=== PATIENT | female | born 1965 | race Caucasian/White ===

== ENCOUNTER 2020-08-24 11:06 | Emergency (ER) | payer OTHER, MEDICAID, SELFPAY ==
[2020-08-24] VITALS (8 sets, daily range): BP systolic 117–179; BP diastolic 80–95; PULSE 80–120; RESP 11–24; TEMP 36.5; O2SAT 99–100
--- NOTE | 2020-08-24 11:12 | DI.RAD.S_ITS ---
PROCEDURE: XR CHEST 1V INDICATIONS: chest pain TECHNIQUE: One view of the chest was acquired. COMPARISON: None. FINDINGS: Surgical changes and devices: None. Lungs and pleura: Lungs are clear. No pleural effusions or pneumothorax. Mediastinum: Mediastinal contours appear normal. Heart size is normal. Bones and chest wall: No suspicious bony lesions. Overlying soft tissues appear unremarkable. IMPRESSION: Portable chest within normal limits. Dictated by: Radu Morin M.D. on 08/24/2020 at 10:41 Approved by: Radu Morin M.D. on 08/24/2020 at 10:42
[2020-08-24 11:23] LABS: Add Manual Diff / Slide Review NO; Basophils Absolute Auto 0 /uL (0-100); Basophils Percent Auto 0.4 % (0-2); Eosinophils Absolute Auto 100 /uL (0-450); Eosinophils Percent Auto 1.8 % (2-4); Hematocrit 43.5 % (36-46); Hemoglobin 14.8 g/dL (12.0-16.0); Lymphocytes Absolute Auto 2100 /uL (1100-4500); Lymphocytes Percent Auto 30.4 % (25-40); Mean Corpuscular HGB Conc 33.9 % (30-36); Mean Corpuscular Hemoglobin 32.4 PG (26-34); Mean Corpuscular Volume 95.4 fL (80-100); Monocytes Absolute Auto 500 /uL (0-900); Monocytes Percent Auto 6.6 % (3-14); Neutrophils Absolute Auto 4300 /uL (1500-7000); Neutrophils Percent Auto 60.8 % (50-75); Platelet Count 306 X10^3/uL (150-400); Red Blood Cell Count 4.57 X10^6/uL (4.0-5.2); Red Cell Distribution Width 12.9 % (11.6-14.8)
--- NOTE | 2020-08-24 11:23 | DI.CT.S_ITS ---
PROCEDURE: CT ANGIO CHEST PE PROTOCOL INDICATIONS: tachy with syncope TECHNIQUE: After the administration of intravenous contrast, 2 mm thick sections acquired from the pulmonary apices to the posterior costophrenic angles. 3-dimensional maximum intensity projection (MIP) coronal and sagittal reformats were then acquired through the thorax. For radiation dose reduction, the following was used: automated exposure control, adjustment of mA and/or kV according to patient size. COMPARISON: [facility], CR, XR CHEST 1V, 08/24/2020, 11:24. FINDINGS: Image quality: Excellent. Pulmonary arteries: Pulmonary arteries are normal in size, and demonstrate no intraluminal filling defects to suggest central pulmonary embolism. Lungs and pleura: Lungs are clear. No pleural effusions or pneumothorax. Central and peripheral airways are patent. Mediastinum: Heart size is normal, without pericardial effusion. No mediastinal or hilar adenopathy. Thoracic aorta is normal in caliber and enhancement. Esophagus is normal in caliber, without hiatal hernia. Bones and chest wall: No suspicious bony lesions. Ribs and thoracic spine appear intact throughout. Thyroid gland demonstrates no significant abnormality. No axillary or supraclavicular adenopathy. Abdomen: Cholecystectomy clips are seen. Visualized upper abdominal solid organs appear normal in the early arterial phase of enhancement. IMPRESSION: Negative for pulmonary embolism. No acute abnormality is seen. Incidental note is made of: Cholecystectomy Dictated by: Radu Morin M.D. on 08/24/2020 at 11:04 Approved by: Radu Morin M.D. on 08/24/2020 at 11:07
[2020-08-24 11:35] LABS: Prothrombin Time 11.6 SECONDS (10.1-12.7)
[2020-08-24 11:38] LABS: PTT Partial Thromboplastin Tim 33 SECONDS (26.4-36.2)
[2020-08-24] MEDS: SODIUM CHLORIDE 0.9% 1,000 ML 1000 ML IV (11:39)
--- NOTE | 2020-08-24 11:39 | PC.NURSE ---
Neuro exam normal. NIH 0
[2020-08-24 11:40] LABS: Alanine Aminotransferase 22 IU/L (<35); Albumin 4.9 g/dL (3.5-5.0); Albumin Globulin Ratio 1.6 (1.0-2.8); Alkaline Phosphatase 63 U/L (38-126); Aspartate Aminotransferase 32 IU/L (14-36); BUN Creatinine Ratio 14.5 (6-22); Bilirubin Total 0.9 mg/dL (0.2-1.3); Blood Urea Nitrogen 11 mg/dL (7-17); Calcium 9.8 mg/dL (8.4-10.2); Carbon Dioxide 30 mmol/L (22-32); Chloride 102 mmol/L (98-107); Creatine Kinase 118 U/L (30-135); Estimated Glomerular Filt Rate > 60.0 mL/min (>60); Globulin 3.1 g/dL (1.7-4.1); Glucose 106 mg/dL (70-100); HEMOLYSIS < 15 (0-50); Lipase 84 U/L (23-300); Magnesium 2.4 mg/dL (1.6-2.3); Potassium 4.1 mmol/L (3.4-5.1); Sodium 138 mmol/L (137-145)
[2020-08-24 11:51] LABS: Troponin I < 0.012 ng/mL (0.01-0.034)
[2020-08-24 11:55] LABS: Creatine Kinase MB 1.18 ng/mL (<2.37)
--- NOTE | 2020-08-24 12:09 | ED.SYNCOPE ---
HPI - Syncope General Chief Complaint: Syncope Stated Complaint: chest pressure, syncope Time Seen by Provider: 08/24/20 11:14 Source: patient and family Mode of arrival: Wheelchair Limitations: no limitations History of Present Illness HPI narrative: Patient is a 54-year-old female with history of vasovagal syncope presenting after a syncopal episode last evening. She states that she was on the toilet having a bowel movement which she extremely dizzy lightheaded she did put her head between her legs. When she stood up she still felt extremely dizzy and needed to lay down for at least 10 minutes. She went to sleep and thought in the morning she would feel better which she did in till they caught up to the [facility]. At the [facility] she just suddenly did not feel well felt her heart racing and felt lightheaded at which point she came to the ER for further evaluation. She says she did the 23 and knee test and she has 2 things positive for factor 5 Leiden. No official testing or diagnosis she has not had any blood in mom. She is tachycardic here in the ED sinus rhythm. She denies any recent travel she has no chest pain or shortness of breath at this time. He denies any fever or chills. She did not at any point lose consciousness or pass out MD complaint: almost passed out Related Data Home Medications Medication Instructions Recorded Confirmed calcium-magnesium 1 tab PO DAILY 08/24/20 08/24/20 nortriptyline 10 mg PO BID 08/24/20 08/24/20 vitamin B complex-folic acid [B 1 tab PO DAILY 08/24/20 08/24/20 Complex 100] Allergies Allergy/AdvReac Type Severity Reaction Status Date / Time prochlorperazine Allergy Severe Weakness Verified 08/24/20 11:24 [From Compazine] alcohol Allergy Intermediate Rash Verified 08/24/20 11:24 [From Mastisol Adhesive] gum mastic Allergy Intermediate Rash Verified 08/24/20 11:24 [From Mastisol Adhesive] methyl salicylate Allergy Intermediate Rash Verified 08/24/20 11:24 [From Mastisol Adhesive] propoxyphene Allergy Intermediate Hallucinati Verified 08/24/20 11:24 [From Darvocet-N] ng storax Allergy Intermediate Rash Verified 08/24/20 11:24 [From Mastisol Adhesive] Sulfa (Sulfonamide Allergy Intermediate Rash Verified 08/24/20 11:24 Antibiotics) amoxicillin [From Augmentin] Allergy Unknown Verified 08/24/20 11:24 clavulanic acid Allergy Unknown Verified 08/24/20 11:24 [From Augmentin] latex Allergy Unknown Verified 08/24/20 11:24 Review of Systems Review of Systems Narrative: GENERAL: Denies chills, fatigue, malaise, fever, sweats, travel HEENT: Denies sinus pain, ear pain, sore throat, difficulty swallowing, neck pain RESPIRATORY: Denies dyspnea, cough, wheezing, hemoptysis, sputum. CARDIOVASCULAR: See HPI Denies chest pain, palpitations, orthopnea, edema GASTROINTESTINAL: Denies nausea, vomiting, abdominal pain, diarrhea, constipation, melena. : Denies dysuria, frequency, incontinence, hematuria, urinary retention, flank pain. MUSCULOSKELETAL: Denies weakness, joint pain, or bony pain SKIN: No rash, no erythema, no pruritus NEUROLOGIC: Denies weakness, dizziness, headache, numbness, change in speech, confusion PSYCHIATRIC: No concerning psychosocial issues. 12 point review of systems is negative except for those stated above and HPI Patient History Medical History Diverticulosis (Acute) Irritable bowel syndrome (Acute) Vasovagal reaction (Acute) Surgical History H/O colectomy (Acute) Social History Smoking Status: Never smoker Smoking Status: Never smoker alcohol intake frequency: 0-2 drinks per day Substance Use Type: does not use Exam Initial Vital Signs Initial Vital Signs: Vital Signs Pulse Rate 115 H 08/24/20 11:13 Respiratory Rate 13 08/24/20 11:13 Pulse Oximetry 100 08/24/20 11:13 GENERAL: Well-appearing, well-nourished and in no acute distress. HEENT: Head atraumatic,EOMI, pupils reactive, face symmetric, moist mucous membranes CARDIOVASCULAR: Tachycardic regular no murmur RESPIRATORY: Breath sounds equal bilaterally, no wheezes rales or rhonchi. ABDOMEN: Soft, nontender. Normoactive bowel sounds all 4 quadrants. No guarding or rebound. EXTREMITIES: Normal range of motion, no clubbing or edema. Neurovascularly intact NEUROLOGICAL: Alert and oriented x4.Normal gait and speech. Legal Support Specialist strength equal bilaterally SKIN: Warm, dry, no laceration, no petechiae, no rashes or lesions. Course Orders Ordered: ED Orders 08/24/20 11:12 XR chest 1V Stat EKG-12 Lead Stat 08/24/20 11:14 Complete Blood Count AUTO DIFF Stat Comprehensive Metabolic Panel Stat Lipase Stat Magnesium Stat Partial Thromboplastin Time Stat Prothrombin Time INR Stat Troponin & CK Cardiac Panel Stat 08/24/20 11:23 CT angio chest PE protocol Stat Discontinued Medications Aspirin (Aspirin Chew) 324 mg PO NOW ONE Stop: 08/24/20 11:13 Last Admin: 08/24/20 11:21 Dose: Not Given Documented by: SHARON Sodium Chloride (Normal Saline 0.9%) 1,000 mls @ 1,000 mls/hr IV BOLUS ONE Stop: 08/24/20 12:22 Last Infusion: 08/24/20 12:56 Dose: 0 mls/hr Documented by: Admin: 08/24/20 11:39 Dose: 1,000 mls/hr Documented by: SHARON Vital Signs Vital signs: Vital Signs - 8 hr 08/24/20 11:13 08/24/20 11:14 08/24/20 11:15 Temperature 97.7 F Pulse Rate 115 H 110 H 103 H Respiratory Rate 13 24 11 L Blood Pressure 179/95 H 141/84 H Pulse Oximetry 100 99 100 08/24/20 11:30 08/24/20 11:45 08/24/20 12:00 Temperature Pulse Rate 86 82 80 Respiratory Rate 11 L 15 11 L Blood Pressure 127/80 128/84 Pulse Oximetry 100 100 100 08/24/20 12:30 08/24/20 12:58 Temperature Pulse Rate 80 Respiratory Rate 17 Blood Pressure 117/81 Pulse Oximetry 100 MDM - Syncope Lab Data Attestation: I reviewed the patient's lab results. Result diagrams: 08/24/20 11:14 08/24/20 11:14 Labs: Lab Results 08/24/20 08/24/20 08/24/20 Range/Units 11:14 11:14 11:14 WBC 7.0 (4.5-11.0) X10^3/uL RBC 4.57 (4.0-5.2) X10^6/uL Hgb 14.8 (12.0-16.0) g/dL Hct 43.5 (36-46) % MCV 95.4 (80-100) fL MCH 32.4 (26-34) PG MCHC 33.9 (30-36) % RDW 12.9 (11.6-14.8) % Plt Count 306 (150-400) X10^3/uL Neut % (Auto) 60.8 (50-75) % Lymph % (Auto) 30.4 (25-40) % Mitchell % (Auto) 6.6 (3-14) % Eos % (Auto) 1.8 L (2-4) % Baso % (Auto) 0.4 (0-2) % Neut # (Auto) 4300 (3201-2048) /uL Lymph # (Auto) 2100 (1660-9780) /uL Mitchell # (Auto) 500 (0-900) /uL Eos # (Auto) 100 (0-450) /uL Baso # (Auto) 0 (0-100) /uL PT 11.6 (10.1-12.7) SECONDS INR 1.0 (0.9-1.3) APTT 33 (26.4-36.2) SECONDS Sodium 138 (137-145) mmol/L Potassium 4.1 (3.4-5.1) mmol/L Chloride 102 (98-107) mmol/L Carbon Dioxide 30 (22-32) mmol/L BUN 11 (7-17) mg/dL Creatinine 0.76 (0.52-1.04) mg/dL Estimated GFR > 60.0 (>60) mL/min BUN/Creatinine Ratio 14.5 (6-22) Glucose 106 H (70-100) mg/dL Calcium 9.8 (8.4-10.2) mg/dL Magnesium (1.6-2.3) mg/dL Total Bilirubin 0.9 (0.2-1.3) mg/dL AST 32 (14-36) IU/L ALT 22 (<35) IU/L Alkaline Phosphatase 63 (38-126) U/L Total Creatine Kinase 118 (30-135) U/L CK-MB (CK-2) 1.18 (<2.37) ng/mL CK-MB (CK-2) Rel Index 1.0 L (1.5-5.0) % Troponin I < 0.012 (0.01-0.034) ng/mL Total Protein 8.0 (6.3-8.2) g/dL Albumin 4.9 (3.5-5.0) g/dL Globulin 3.1 (1.7-4.1) g/dL Albumin/Globulin Ratio 1.6 (1.0-2.8) Lipase 84 (23-300) U/L // Range/Units 11:14 WBC (4.5-11.0) X10^3/uL RBC (4.0-5.2) X10^6/uL Hgb (12.0-16.0) g/dL Hct (36-46) % MCV (80-100) fL MCH (26-34) PG MCHC (30-36) % RDW (11.6-14.8) % Plt Count (150-400) X10^3/uL Neut % (Auto) (50-75) % Lymph % (Auto) (25-40) % Mitchell % (Auto) (3-14) % Eos % (Auto) (2-4) % Baso % (Auto) (0-2) % Neut # (Auto) (0557-8485) /uL Lymph # (Auto) (7223-0173) /uL Mitchell # (Auto) (0-900) /uL Eos # (Auto) (0-450) /uL Baso # (Auto) (0-100) /uL PT (10.1-12.7) SECONDS INR (0.9-1.3) APTT (26.4-36.2) SECONDS Sodium (137-145) mmol/L Potassium (3.4-5.1) mmol/L Chloride (98-107) mmol/L Carbon Dioxide (22-32) mmol/L BUN (7-17) mg/dL Creatinine (0.52-1.04) mg/dL Estimated GFR (>60) mL/min BUN/Creatinine Ratio (6-22) Glucose (70-100) mg/dL Calcium (8.4-10.2) mg/dL Magnesium 2.4 H (1.6-2.3) mg/dL Total Bilirubin (0.2-1.3) mg/dL AST (14-36) IU/L ALT (<35) IU/L Alkaline Phosphatase (38-126) U/L Total Creatine Kinase (30-135) U/L CK-MB (CK-2) (<2.37) ng/mL CK-MB (CK-2) Rel Index (1.5-5.0) % Troponin I (0.01-0.034) ng/mL Total Protein (6.3-8.2) g/dL Albumin (3.5-5.0) g/dL Globulin (1.7-4.1) g/dL Albumin/Globulin Ratio (1.0-2.8) Lipase (23-300) U/L Imaging Data Chest x-ray: Radiologist's Impression: PROCEDURE: XR CHEST 1V INDICATIONS: chest pain TECHNIQUE: One view of the chest was acquired. COMPARISON: None. FINDINGS: Surgical changes and devices: None. Lungs and pleura: Lungs are clear. No pleural effusions or pneumothorax. Mediastinum: Mediastinal contours appear normal. Heart size is normal. Bones and chest wall: No suspicious bony lesions. Overlying soft tissues appear unremarkable. IMPRESSION: Portable chest within normal limits. Dictated by: Radu Morin M.D. on 08/24/2020 at 10:41 Approved by: Radu Morin M.D. on 08/24/2020 at 10:42 CT scan - chest: Radiologist's Impression: PROCEDURE: CT ANGIO CHEST PE PROTOCOL INDICATIONS: tachy with syncope TECHNIQUE: After the administration of intravenous contrast, 2 mm thick sections acquired from the pulmonary apices to the posterior costophrenic angles. 3-dimensional maximum intensity projection (MIP) coronal and sagittal reformats were then acquired through the thorax. For radiation dose reduction, the following was used: automated exposure control, adjustment of mA and/or kV according to patient size. COMPARISON: [facility], XR CHEST 1V, 08/24/2020, 11:24. FINDINGS: Image quality: Excellent. Pulmonary arteries: Pulmonary arteries are normal in size, and demonstrate no intraluminal filling defects to suggest central pulmonary embolism. Lungs and pleura: Lungs are clear. No pleural effusions or pneumothorax. Central and peripheral airways are patent. Mediastinum: Heart size is normal, without pericardial effusion. No mediastinal or hilar adenopathy. Thoracic aorta is normal in caliber and enhancement. Esophagus is normal in caliber, without hiatal hernia. Bones and chest wall: No suspicious bony lesions. Ribs and thoracic spine appear intact throughout. Thyroid gland demonstrates no significant abnormality. No axillary or supraclavicular adenopathy. Abdomen: Cholecystectomy clips are seen. Visualized upper abdominal solid organs appear normal in the early arterial phase of enhancement. IMPRESSION: Negative for pulmonary embolism. No acute abnormality is seen. Incidental note is made of: Cholecystectomy Dictated by: Radu Morin M.D. on 08/24/2020 at 11:04 ECG Data Attestation: I personally reviewed and interpreted this ECG as follows: Prior ECG tracings: not available for review Interpretation: Normal sinus rhythm rate 106 p.r. interval 178 QRS [address] changes T-wave inversions no S wave or Q-wave identified MDM Narrative Medical decision making narrative: The patient has not passed out, it sounds as though she was having a vasovagal episode while bearing down on the toilet last evening. I am not sure what happened today she was having some heart palpitations. Heart rate improved with 1 L of IV fluid. CT done for tachycardia and questionable hypercoagulable state. It is negative. I do recommend she have a Holter monitor as an outpatient. The patient blood work is reassuring. She is trying to get set up with a PCP she is given information to do so. Recommend she return to the ED if she passes out or symptoms worsen. Discharge Plan Departure Patient Disposition: Home Clinical Impression: Vasovagal syncope Discharge Date/Time: 08/24/20 13:07 Instructions: DI for Syncope in Adults (Fainting) Activity Restrictions/Additional Instructions: *You have been diagnosed with vasovagal episode *What to do: I do recommend she get a Holter monitor to check your heart rate. Your PCP can help set you with this. I recommend increasing fluids intake today and resting *Continue to take medications as directed *Follow up with your primary care provider in 2-3 days *Return to ER if you should have increasing chest pain, heart palpitations, passing or any new, worsening or concerning symptoms Prescriptions: No Action nortriptyline 10 mg Capsule 10 mg PO BID RF: 0 calcium-magnesium 300-300 mg Tablet 1 tab PO DAILY RF: 0 vitamin B complex-folic acid [B Complex 100] 0.4 mg Tablet 1 tab PO DAILY RF: 0 Referrals: [facility] [Outside]
== END 2020-08-24 13:07 | disposition home or self-care (01) ==
PROVIDERS: Emergency Provider Emergency Medicine
DX: R55 Syncope and collapse (principal); R07.9 Chest pain, unspecified; R00.0 Tachycardia, unspecified
CPT/HCPCS: 36415; 71045; 71275; 80053; 82550; 82553; 83690; 83735; 84484; 85025; 85610; 85730; 93005; 93010; 96360; 99284; Q9967

== ENCOUNTER → 2021-01-31 12:41 | Outpatient (CLI) | payer OTHER, SELFPAY ==
[2021-01-31] MEDS: COVID-19 VACC #1, MRNA(MOD) 100 MCG/0.5 ML VIAL IM (12:50)
== END ==
PROVIDERS: Visit Provider Internal Medicine
DX: Z23 Encounter for immunization (principal)
CPT/HCPCS: 0011A; 91301

== ENCOUNTER → 2021-02-28 12:41 | Outpatient (CLI) | payer OTHER, SELFPAY ==
[2021-02-28] MEDS: COVID-19 VACC #2, MRNA(MOD) 100 MCG/0.5 ML VIAL IM (12:52)
== END ==
PROVIDERS: Visit Provider Internal Medicine
DX: Z23 Encounter for immunization (principal)
CPT/HCPCS: 0012A; 91301

== ENCOUNTER → 2021-10-08 16:13 | Outpatient (CLI) | payer OTHER, SELFPAY ==
--- NOTE | 2021-10-08 16:14 | DI.MG.S_ITS ---
BILATERAL DIGITAL SCREENING MAMMOGRAM 3D/2D WITH CAD: 10/08/2021 CLINICAL: Routine screening. Family history of breast cancer. Comparison is made to exams dated: 08/15/2020 mammogram - [facility], 04/28/2017 mammogram, and 07/03/2014 mammogram - [facility]. There are scattered fibroglandular elements in both breasts. Current study was also evaluated with a Computer Aided Detection (CAD) system. No significant masses, calcifications, or other findings are seen in either breast. There has been no significant interval change. IMPRESSION: NEGATIVE There is no mammographic evidence of malignancy. A 1 year screening mammogram is recommended. This exam was interpreted at Station ID: [id number]. NOTE: For mammograms, a report in lay terms will be sent to the patient. Approximately 15% of breast malignancies will not be visualized mammographically. In the management of a palpable breast mass, a negative mammogram must not discourage biopsy of a clinically suspicious lesion. Electronically Signed By: Tong Jenkins M.D., jr/kathrin:10/08/2021 17:03:56 letter sent: Normal Exam ACR BI-RADS Category 1: Negative [id number]
== END ==
PROVIDERS: PCP Family Medicine; Referring Provider Family Medicine; Visit Provider Family Medicine
DX: Z12.31 Encounter for screening mammogram for malignant neoplasm of breast (principal); Z80.3 Family history of malignant neoplasm of breast
CPT/HCPCS: 77063; 77067

== ENCOUNTER 2023-08-03 14:05 | Emergency (ER) | payer OTHER, SELFPAY ==
[2023-08-03 14:09] VITALS: BP 179/104; PULSE 110; O2SAT 99
[2023-08-03 14:14] VITALS: BP 179/104; PULSE 98; RESP 20; TEMP 36.6; O2SAT 100; BMI 22.8
--- NOTE | 2023-08-03 14:14 | DI.CT.S_ITS ---
PROCEDURE: CT HEAD/BRAIN WO CON INDICATIONS: L sided headache and L sided numbness TECHNIQUE: Noncontrast 4.5 mm thick angled axial sections acquired from the foramen magnum to the vertex, with coronal and sagittal reformats. For radiation dose reduction, the following was used: automated exposure control, adjustment of mA and/or kV according to patient size. COMPARISON: None. FINDINGS: Image quality: Excellent. CSF spaces: Basal cisterns are patent. No extra-axial fluid collections. Ventricles are normal in size and shape. Brain: No midline shift. No intracranial masses or hemorrhage. Williamson-white matter interface is normal. Skull and face: Calvarium and visualized facial bones are intact, without suspicious lesions. Sinuses: Mastoid air cells are clear. Small amount of layering fluid in the bilateral maxillary sinuses. Remainder of the paranasal sinuses are clear. IMPRESSION: CT head without acute intracranial abnormalities. No mass or mass effect. Minimal layering fluid in the bilateral maxillary sinuses possibly related to maxillary sinusitis. Dictated by: Nahum Alexander M.D. on 08/03/2023 at 14:35 Approved by: Nahum Alexander M.D. on 08/03/2023 at 14:36
[2023-08-03 14:25] VITALS: BP 148/93; PULSE 82; RESP 14; O2SAT 99
[2023-08-03 14:30] VITALS: BP 147/91; PULSE 84; RESP 13; O2SAT 98
[2023-08-03 14:31] LABS: Add Manual Diff / Slide Review NO; Basophils Absolute Auto 0 /uL (0-100); Basophils Percent Auto 0.5 % (0-2); Eosinophils Absolute Auto 100 /uL (0-450); Hematocrit 40.6 % (36-46); Hemoglobin 14.2 g/dL (12.0-16.0); Lymphocytes Absolute Auto 1500 /uL (1100-4500); Lymphocytes Percent Auto 24.1 % (25-40); Mean Corpuscular HGB Conc 34.9 % (30-36); Mean Corpuscular Hemoglobin 32.7 PG (26-34); Mean Corpuscular Volume 93.7 fL (80-100); Monocytes Absolute Auto 600 /uL (0-900); Monocytes Percent Auto 9.8 % (3-14); Neutrophils Absolute Auto 4000 /uL (1500-7000); Neutrophils Percent Auto 63.6 % (50-75); Platelet Count 233 X10^3/uL (150-400); Red Blood Cell Count 4.34 X10^6/uL (4.0-5.2); Red Cell Distribution Width 13.4 % (11.6-14.8); White Blood Cell Count 6.3 X10^3/uL (4.5-11.0)
--- NOTE | 2023-08-03 14:39 | ED.NEUROSD ---
HPI - Neuro Symptoms/Deficit General Chief Complaint: Neuro Symptoms/Deficit Stated Complaint: thinks she is having a TIA Time Seen by Provider: 08/03/23 14:13 Source: patient Mode of arrival: Ambulatory History of Present Illness HPI Narrative: Patient is a 57-year-old female who is here for evaluation which she thinks is potentially a TIA. She states that she woke up this morning at her normal state of health. She is been sick for the past couple days. States she was sitting at her desk when she stood up she noticed that her left leg was tingling/numb. It lasted approximately 15 minutes and has since almost completely resolved. Prior to the leg completely resolving she then started to have tingling in her left hand. That is still present but again has almost completely resolved. She then started to develop tingling in the left side of her face in the left-sided headache. She has had migraines in the past but that was many years ago. Has not had them since she was a kid. She is still having some tingling to the left side of her face. No vision problems. No chest pain or shortness of breath. On Anticoagulants: No Related Data Home Medications Medication Instructions Recorded Confirmed Topical skin cancer cream topical 08/28/21 estradiol 0.01% (0.1 mg/gram) 1 appful vaginal DAILY 08/28/21 08/28/21 vaginal cream Previous Rx's Medication Instructions Recorded nitrofurantoin macrocrystal 100 mg 100 mg PO BID #10 caps 08/28/21 capsule valacyclovir 1 gram tablet See Rx Instructions .Route 02/09/22 .COMPLEX #21 tabs sodium,potassium,mag sulfates 17.5 See Rx Instructions PO .COMPLEX 07/28/23 gram-3.13 gram-1.6 gram oral soln #354 mL (Suprep Bowel Prep Kit) Allergies Allergy/AdvReac Type Severity Reaction Status Date / Time prochlorperazine Allergy Severe Weakness Verified 08/28/21 14:43 [From Compazine] alcohol Allergy Intermediate Rash Verified 08/28/21 14:43 [From Mastisol Adhesive] gum mastic Allergy Intermediate Rash Verified 08/28/21 14:43 [From Mastisol Adhesive] methyl salicylate Allergy Intermediate Rash Verified 08/28/21 14:43 [From Mastisol Adhesive] propoxyphene Allergy Intermediate Hallucinati Verified 08/28/21 14:43 [From Darvocet-N] ng storax Allergy Intermediate Rash Verified 08/28/21 14:43 [From Mastisol Adhesive] Sulfa (Sulfonamide Allergy Intermediate Rash Verified 08/28/21 14:43 Antibiotics) amoxicillin [From Augmentin] Allergy Unknown Verified 08/28/21 14:43 clavulanic acid Allergy Unknown Verified 08/28/21 14:43 [From Augmentin] latex Allergy Unknown Verified 08/28/21 14:43 Review of Systems Constitutional Constitutional: Reports system reviewed and no additional complaints, except as documented ENT Ears, Nose, Mouth, and Throat: Reports system reviewed and no additional complaints, except as documented Cardiovascular Cardiovascular: Reports system reviewed and no additional complaints, except as documented Respiratory Respiratory: Reports system reviewed and no additional complaints, except as documented Integumentary/Breasts Skin/Breast: Reports system reviewed and no additional complaints, except as documented Neurologic Neurologic: Reports system reviewed and no additional complaints, except as documented Hematologic/Lymphatic On Anticoagulants: No Allergic/Immunologic Allergic/Immunologic: Reports system reviewed and no additional complaints, except as documented Patient History Medical History Acne (~1979) Actinic keratosis (~2011) Colon polyps (~2014) Diverticulosis (~2014) Endometriosis (~2009) Factor V Leiden (~1965) Gluten intolerance (~2014) Hearing loss Herpes (~1994) Hyperlipidemia Irritable bowel syndrome (~2014) Ovarian cyst (~1999) Painful menstrual periods (~1984) Skin cancer, basal cell (~2019) Squamous cell skin cancer (~2019) Vasovagal reaction Wears glasses Surgical History Anesthesia Dermoid cyst H/O colectomy History of section History of cholecystectomy History of hysterectomy History of removal of cyst History of varicose vein ligation Status post Mohs surgery Status post surgical removal of both fallopian tubes Family History (Updated 08/28/21 @ 14:55 by Juan Albert DO) Father Skin cancer Mother Hypertension Grandmother History of heart disease Grandfather Cancer History of heart disease Social History Smoking Status: Never smoker Smoking Status: Never smoker alcohol intake frequency: a few times a week Substance Use Type: does not use Exam Initial Vital Signs Initial Vital Signs: Vital Signs Pulse Rate 110 H 08/03/23 14:09 Blood Pressure 179/104 H 08/03/23 14:09 Pulse Oximetry 99 08/03/23 14:09 Const General: cooperative, comfortable and No ill appearing HENMT Head: normal to inspection and normocephalic Face and sinus: normal facial exam Resp Effort & Inspection: normal respiratory effort Cardio Rate: regular rate Rhythm: regular rhythm Skin General: no rashes or lesions noted Neuro Other: Neuro exam intact except for subjective decreased sensation on the left cheek versus the right side, left hand versus the right side and left foot compared to right foot. Extrem General: normal to inspection Course Orders Ordered: ED Orders 08/03/23 14:14 CT head/brain wo con Stat 08/03/23 14:15 Complete Blood Count AUTO DIFF Stat Comprehensive Metabolic Panel Stat Lipase Stat Magnesium Stat 08/03/23 14:16 EKG-12 Lead Stat Sodium Chloride (Normal Saline 0.9%) 1,000 mls @ 1,000 mls/hr IV BOLUS ONE Stop: 08/03/23 16:05 Last Admin: 08/03/23 15:16 Dose: Not Given Documented By: AMV Discontinued Medications Diphenhydramine HCl (Diphenhydramine 50 Mg/Ml Vial) 25 mg IV NOW ONE Stop: 08/03/23 14:58 Last Admin: 08/03/23 15:16 Dose: Not Given Documented By: AMV Ketorolac Tromethamine (Ketorolac 30 Mg/Ml Vial) 30 mg IV NOW ONE Stop: 08/03/23 14:58 Last Admin: 08/03/23 15:16 Dose: Not Given Documented By: AMV Metoclopramide HCl (Metoclopramide 10 Mg/2 Ml Inj) 10 mg IV NOW ONE Stop: 08/03/23 14:58 Last Admin: 08/03/23 15:16 Dose: Not Given Documented By: AMV Vital Signs Vital signs: Vital Signs - 8 hr 08/03/23 14:14 08/03/23 14:09 08/03/23 14:09 Temperature 98 F Pulse Rate 98 H 110 H Respiratory Rate 20 Blood Pressure 179/104 H 179/104 H Pulse Oximetry 100 99 Oxygen Delivery Method Room Air 08/03/23 14:25 08/03/23 14:25 08/03/23 14:30 Temperature Pulse Rate 82 Respiratory Rate 14 Blood Pressure 148/93 H 147/91 H Pulse Oximetry 99 Oxygen Delivery Method 08/03/23 14:30 08/03/23 15:00 08/03/23 15:00 Temperature Pulse Rate 84 84 Respiratory Rate 13 16 Blood Pressure 128/80 Pulse Oximetry 98 97 Oxygen Delivery Method MDM - Neuro Symptoms/Deficit Lab Data Attestation: I reviewed the patient's lab results. 08/03/23 14:15 08/03/23 14:15 Labs: Lab Results 08/03/23 08/03/23 Range/Units 14:15 14:15 WBC 6.3 (4.5-11.0) X10^3/uL RBC 4.34 (4.0-5.2) X10^6/uL Hgb 14.2 (12.0-16.0) g/dL Hct 40.6 (36-46) % MCV 93.7 (80-100) fL MCH 32.7 (26-34) PG MCHC 34.9 (30-36) % RDW 13.4 (11.6-14.8) % Plt Count 233 (150-400) X10^3/uL Neut % (Auto) 63.6 (50-75) % Lymph % (Auto) 24.1 L (25-40) % [place] % (Auto) 9.8 (3-14) % Eos % (Auto) 2.0 (2-4) % Baso % (Auto) 0.5 (0-2) % Neut # (Auto) 4000 (4186-6078) /uL Lymph # (Auto) 1500 (8498-9115) /uL [place] # (Auto) 600 (0-900) /uL Eos # (Auto) 100 (0-450) /uL Baso # (Auto) 0 (0-100) /uL Sodium 138 (137-145) mmol/L Potassium 3.9 (3.4-5.1) mmol/L Chloride 103 (98-107) mmol/L Carbon Dioxide 28 (22-32) mmol/L BUN 10 (7-17) mg/dL Creatinine 0.74 (0.52-1.04) mg/dL Estimated GFR > 60 (>60) mL/min BUN/Creatinine Ratio 13.5 (6-22) Glucose 125 H (70-100) mg/dL Calcium 9.7 (8.4-10.2) mg/dL Magnesium 2.3 (1.6-2.3) mg/dL Total Bilirubin 0.6 (0.2-1.3) mg/dL AST 29 (14-36) IU/L ALT 29 (<35) IU/L Alkaline Phosphatase 68 (38-126) U/L Total Protein 7.7 (6.3-8.2) g/dL Albumin 4.6 (3.5-5.0) g/dL Globulin 3.1 (1.7-4.1) g/dL Albumin/Globulin Ratio 1.5 (1.0-2.8) Lipase 82 (23-300) U/L Imaging Data CT scan - head: Radiologist's Impression: PROCEDURE:? CT HEAD/BRAIN WO CON ? INDICATIONS:? L sided headache and L sided numbness ? TECHNIQUE:? Noncontrast 4.5 mm thick angled axial sections acquired from the foramen magnum to the vertex, with coronal and sagittal reformats.? For radiation dose reduction, the following was used:? automated exposure control, adjustment of mA and/or kV according to patient size.? ? COMPARISON:? None. ? FINDINGS:? Image quality:? Excellent.? ? CSF spaces:? Basal cisterns are patent.? No extra-axial fluid collections.? Ventricles are normal in size and shape.? ? Brain:? No midline shift.? No intracranial masses or hemorrhage.? Williamson-white matter interface is normal.? ? Skull and face:? Calvarium and visualized facial bones are intact, without suspicious lesions.? ? Sinuses:? Mastoid air cells are clear.? Small amount of layering fluid in the bilateral maxillary sinuses.? Remainder of the paranasal sinuses are clear. ? IMPRESSION:? CT head without acute intracranial abnormalities.? No mass or mass effect. ? Minimal layering fluid in the bilateral maxillary sinuses possibly related to maxillary sinusitis. ECG Data Attestation: I personally reviewed and interpreted this ECG as follows: Interpretation: Sinus rhythm Ventricular rate 86 Normal axis Normal QRS Nonspecific ST T wave changes MDM Narrative Medical decision making narrative: Initially patient wanted treatment for her headache however when the nurse went into give her medicine she says that her headache is much improved. The tingling in her arm and leg are much improved she still is having some tingling left side of her face. I have low suspicion for TIA/CVA. Low suspicion for seizure. Could potentially be complex migraine. There is no physical exam findings consistent with Youssef's palsy. Head CT is unremarkable. Labs are unremarkable. Discharge patient home with instructions to contact her primary doctor for follow-up. She was given return precautions. She expressed understanding and agreement. Discharge Plan Departure Patient Disposition: Home Clinical Impression: Paresthesias, Headache Instructions: DI for Headache, DI for Numbness/Tingling Activity Restrictions/Additional Instructions: Recommend that you continue to take all your medications as directed. Contact your primary provider for follow-up. Return to the emergency department for new or worsening symptoms. Prescriptions: No Action valacyclovir 1 gram tablet See Rx Instructions .ROUTE .COMPLEX Qty: 21 4RF Dose Instruction: TAKE 1/2 TABLET BY MOUTH TWICE DAILY FOR HERPES Rx Instructions: TAKE 1/2 TABLET BY MOUTH TWICE DAILY FOR HERPES sodium,potassium,mag sulfates [Suprep Bowel Prep Kit] 17.5-3.13-1.6 gram recon soln See Rx Instructions PO .COMPLEX Qty: 354 0RF Rx Instructions: take as directed by Physician Topical skin cancer cream topical estradiol 0.01 % (0.1 mg/gram) cream 1 appful vaginal DAILY Rx Instructions: for 14 days nitrofurantoin macrocrystal 100 mg capsule 100 mg PO BID Qty: 10 1RF Rx Instructions: must administer with a meal/food Referrals: Juan Albert DO [Primary Care Provider] - Stand Alone Forms: Patient Portal/API
[2023-08-03 14:45] LABS: Alanine Aminotransferase 29 IU/L (<35); Albumin 4.6 g/dL (3.5-5.0); Albumin Globulin Ratio 1.5 (1.0-2.8); Alkaline Phosphatase 68 U/L (38-126); Aspartate Aminotransferase 29 IU/L (14-36); BUN Creatinine Ratio 13.5 (6-22); Bilirubin Total 0.6 mg/dL (0.2-1.3); Blood Urea Nitrogen 10 mg/dL (7-17); Calcium 9.7 mg/dL (8.4-10.2); Carbon Dioxide 28 mmol/L (22-32); Chloride 103 mmol/L (98-107); Estimated Glomerular Filt Rate > 60 mL/min (>60); Globulin 3.1 g/dL (1.7-4.1); Glucose 125 mg/dL (70-100); HEMOLYSIS < 15 (0-50); Lipase 82 U/L (23-300); Magnesium 2.3 mg/dL (1.6-2.3); Potassium 3.9 mmol/L (3.4-5.1); Sodium 138 mmol/L (137-145); Total Protein 7.7 g/dL (6.3-8.2)
[2023-08-03 15:00] VITALS: BP 128/80; PULSE 84; RESP 16; O2SAT 97
--- NOTE | 2023-08-03 15:16 | PC.NURSE ---
Went in to medicate pt for her headache and she states her pain went from 7/10 to less then [address] Elliott informed
[2023-08-03 15:30] VITALS: BP 130/89; PULSE 84; RESP 13; O2SAT 96
== END 2023-08-03 15:45 | disposition home or self-care (01) ==
PROVIDERS: Emergency Provider Emergency Medicine; PCP Family Medicine
DX: R20.2 Paresthesia of skin (principal); R51.9 Headache, unspecified
CPT/HCPCS: 36415; 70450; 80053; 83690; 83735; 85025; 93005; 99284

== ENCOUNTER → 2023-12-24 16:56 | Outpatient (CLI) | payer OTHER, SELFPAY ==
--- NOTE | 2023-12-24 | DI.MG.S_ITS ---
BILATERAL DIGITAL SCREENING MAMMOGRAM 3D/2D WITH CAD: 12/24/2023 CLINICAL: Routine screening. Family history of breast cancer. Comparison is made to exams dated: 10/08/2021 mammogram - [facility], 08/15/2020 mammogram - [facility], and 04/28/2017 mammogram - [facility]. There are scattered areas of fibroglandular density in both breasts (category b / 25%-50% glandular tissue). Current study was also evaluated with a Computer Aided Detection (CAD) system. There is a focal asymmetry in the left breast central to the nipple in the retroareolar region. This is more prominent. No other significant masses, calcifications, or other findings are seen in either breast. Post operative finding in the right breast. IMPRESSION: INCOMPLETE: NEEDS ADDITIONAL IMAGING EVALUATION The focal asymmetry in the left breast is indeterminate. Additional views with possible ultrasound are recommended. Based on the Tyrer Cuzick model (a risk assessment model) the patient's lifetime risk is 13.3% and her 10 year risk is 5.0%. According to the ACR, ACS, and NCCN guidelines, an annual breast MRI exam along with mammogram is recommended if the patient's lifetime risk is 20% or greater. This exam was interpreted at Station ID: [id number]. NOTE: For mammograms, a report in lay terms will be sent to the patient. Approximately 15% of breast malignancies will not be visualized mammographically. In the management of a palpable breast mass, a negative mammogram must not discourage biopsy of a clinically suspicious lesion. Electronically Signed By: Eddie Malloy M.D. [facility] [place]/:12/27/2023 13:53:42 letter sent: Additional Imaging Needed ACR BI-RADS Category 0: Incomplete [id number]
== END ==
LOC: MAMMO 16:57
PROVIDERS: PCP Family Medicine; Referring Provider Family Medicine; Visit Provider Family Medicine
DX: Z12.31 Encounter for screening mammogram for malignant neoplasm of breast (principal); Z80.3 Family history of malignant neoplasm of breast; R92.323 Mammographic fibroglandular density, bilateral breasts
CPT/HCPCS: 77063; 77067

== ENCOUNTER → 2024-01-20 12:05 | Outpatient (CLI) | payer OTHER, SELFPAY ==
--- NOTE | 2024-01-20 | DI.MG.S_ITS ---
UNILATERAL LEFT DIGITAL DIAGNOSTIC MAMMOGRAM 3D/2D WITH ADDITIONAL VIEWS: 01/20/2024 CLINICAL: Additional evaluation requested from prior study. Comparison is made to exams dated: 12/24/2023 mammogram, 10/08/2021 mammogram - [facility], and 08/15/2020 mammogram - [facility]. There are scattered areas of fibroglandular density in the left breast (category b / 25%-50% glandular tissue). There is a stable focal asymmetry in the left breast central to the nipple in the retroareolar region. This is seen in additional views. No other significant masses or calcifications are seen in the breast. IMPRESSION: INCOMPLETE: NEEDS ADDITIONAL IMAGING EVALUATION The stable focal asymmetry in the left breast is indeterminate. An ultrasound is recommended. Based on the Tyrer Cuzick model (a risk assessment model) the patient's lifetime risk is 13.3% and her 10 year risk is 5.0%. According to the ACR, ACS, and NCCN guidelines, an annual breast MRI exam along with mammogram is recommended if the patient's lifetime risk is 20% or greater. This exam was interpreted at Station ID: [id number]. NOTE: For mammograms, a report in lay terms will be sent to the patient. Approximately 15% of breast malignancies will not be visualized mammographically. In the management of a palpable breast mass, a negative mammogram must not discourage biopsy of a clinically suspicious lesion. Electronically Signed By: Gene Vivar M.D. lc/:01/20/2024 13:31:41 ACR BI-RADS Category 0: Incomplete [id number]
--- NOTE | 2024-01-20 12:06 | DI.US.S_ITS ---
ULTRASOUND OF LEFT BREAST: 01/20/2024 CLINICAL: Patient returns today to evaluate a focal asymmetry in the left breast. Comparison is made to exams dated: 01/20/2024 mammogram, 12/24/2023 mammogram, 10/08/2021 mammogram - [facility], 08/15/2020 mammogram - [facility], 04/28/2017 mammogram, and 07/03/2014 mammogram - [facility]. Color flow and real-time ultrasound of the left breast were performed. Williamson scale images of the real-time examination were reviewed. There is benign duct ectasia in the left breast central to the nipple in the retroareolar region. This duct ectasia displays internal echoes. This correlates with mammography findings. IMPRESSION: BENIGN There is no sonographic evidence of malignancy. The duct ectasia in the left breast is benign. Return to annual mammogram screening schedule is recommended for the left breast. Please note patient reported a new palpable abnormality in the right breast during today's examination. Further diagnostic evaluation with mammography and possible ultrasound is recommended for the right breast at a future date. This exam was interpreted at Station ID: [id number]. Electronically Signed By: Gene Vivar M.D. lc/:01/20/2024 13:33:51 letter sent: Normal Exam Ultrasound BI-RADS: 2 Benign
== END ==
PROVIDERS: PCP Family Medicine; Referring Provider Family Medicine; Visit Provider Family Medicine
DX: R92.8 Other abnormal and inconclusive findings on diagnostic imaging of breast (principal); N60.42 Mammary duct ectasia of left breast; R92.322 Mammographic fibroglandular density, left breast
CPT/HCPCS: 76642; 77065; G0279

== ENCOUNTER → 2024-01-21 07:02 | Outpatient (CLI) | payer OTHER, SELFPAY ==
[2024-01-21 08:25] LABS: Cholesterol 241 mg/dL (140-199); HDL Cholesterol 65 mg/dL (40-60); LDL Cholesterol Calculated 153 mg/dL (<100); Triglycerides 116 mg/dL (35-150)
[2024-01-21 08:37] LABS: Prolactin 10.1 ng/mL (3.0-18.6)
== END ==
LOC: LAB 07:03
PROVIDERS: PCP Family Medicine; Referring Provider Physician Assistant; Visit Provider Physician Assistant
DX: E78.5 Hyperlipidemia, unspecified (principal); N64.52 Nipple discharge
CPT/HCPCS: 36415; 80061; 84146; 84443

== ENCOUNTER → 2024-02-14 11:58 | Outpatient (CLI) | payer OTHER, SELFPAY ==
--- NOTE | 2024-02-14 12:00 | DI.US.S_ITS ---
LIMITED ULTRASOUND OF RIGHT BREAST: 02/14/2024 CLINICAL: 3-4 month hx right breast 'lump' with itching and minimal clear nipple discharge. Comparison is made to exams dated: 12/24/2023 mammogram, 10/08/2021 mammogram - [facility], and 08/15/2020 mammogram - [facility]. Real-time and continuous wave Doppler ultrasound of the right breast 12-6 o'clock region were performed on the areas of interest. IMPRESSION: NEGATIVE There is no sonographic evidence of malignancy. There is no sonographic abnormality seen in the right breast to correspond with the palpable abnormality, however, clinical followup is recommended. Return to annual mammogram screening schedule is recommended. Future imaging is recommended as follows: 12/25/2024 screening mammogram. This exam was interpreted at Station ID: [id number]. Electronically Signed By: Elsi glover/:02/14/2024 13:14:30 letter sent: Clinical Evaluation Ultrasound BI-RADS: 1 Negative
== END ==
PROVIDERS: PCP Family Medicine; Referring Provider Physician Assistant; Visit Provider Physician Assistant
DX: N64.4 Mastodynia (principal); N64.52 Nipple discharge
CPT/HCPCS: 76642

== ENCOUNTER 2024-04-11 09:32 | Day surgery (SDC) | payer OTHER, SELFPAY ==
[2024-04-11 10:25] VITALS: BP 119/76; PULSE 75; RESP 16; TEMP 36.6; O2SAT 95
--- NOTE | 2024-04-11 10:55 | PM.HP.1 ---
History of Present Illness History of Present Illness Date Patient Seen: 04/11/24 Time Patient Seen: 10:56 Chief complaint: Screening Colonoscopy Narrative: 58-year-old woman history of diverticulosis status post sigmoid colectomy here for screening colonoscopy. Last colonoscopy 2018. History of colonic polyps. No abdominal concerns today. [facility] Medical History Left arm numbness Chronic low back pain without sciatica Arthritis of both hands Chronic pain in right foot Hyperlipidemia Wears glasses Hearing loss Actinic keratosis (~2011) Acne (~1979) Factor V Leiden (~1965) Painful menstrual periods (~1984) Ovarian cyst (~1999) Herpes (~1994) Endometriosis (~2009) Gluten intolerance (~2014) Colon polyps (~2014) Squamous cell skin cancer (~2019) Skin cancer, basal cell (~2019) Diverticulosis (~2014) Vasovagal reaction Irritable bowel syndrome (~2014) Surgical History Anesthesia Dermoid cyst Status post Mohs surgery History of cholecystectomy History of hysterectomy History of removal of cyst History of section Status post surgical removal of both fallopian tubes History of varicose vein ligation H/O colectomy Family History Father Skin cancer Mother Hypertension Grandmother History of heart disease Grandfather Cancer History of heart disease Social History Smoking Status: Never smoker alcohol intake: current Meds Home Medications and Allergies Home Medications Medication Instructions Recorded Confirmed Type estradiol 0.01% (0.1 mg/gram) 1 appful vaginal DAILY #42.5 grams 09/29/23 01/20/24 Rx vaginal cream valacyclovir 1 gram tablet See Rx Instructions .Route 01/20/24 01/20/24 Rx .COMPLEX #21 tabs Allergies Allergy/AdvReac Type Severity Reaction Status Date / Time prochlorperazine Allergy Severe Weakness Verified 04/11/24 10:04 [From Compazine] alcohol Allergy Intermediate Rash Verified 04/11/24 10:04 [From Mastisol Adhesive] gum mastic Allergy Intermediate Rash Verified 04/11/24 10:04 [From Mastisol Adhesive] methyl salicylate Allergy Intermediate Rash Verified 04/11/24 10:04 [From Mastisol Adhesive] propoxyphene Allergy Intermediate Hallucinati Verified 04/11/24 10:04 [From Darvocet-N] ng storax Allergy Intermediate Rash Verified 04/11/24 10:04 [From Mastisol Adhesive] Sulfa (Sulfonamide Allergy Intermediate Rash Verified 04/11/24 10:04 Antibiotics) amoxicillin [From Augmentin] Allergy Unknown Verified 04/11/24 10:04 clavulanic acid Allergy Unknown Verified 04/11/24 10:04 [From Augmentin] latex Allergy Unknown Verified 04/11/24 10:04 Exam Vital Signs (past 8 hours): - 04/11/24 10:25 Temperature 97.8 F Pulse Rate 75 Respiratory Rate 16 Blood Pressure 119/76 Pulse Oximetry 95 Oxygen Delivery Method Room Air Oxygen Delivery Method Room Air Narrative Exam Narrative: General adult woman is alert oriented no acute distress Chest nonlabored respiration Extremities warm well perfused Assessment & Plan Assessment & Plan narrative: The patient requires colorectal screening and colonoscopy is recommended. Technical details were discussed. Risks, benefits, alternatives explained. Risks including but not limited to myocardial infarction, aspiration, bleeding, pain, missed lesion, incomplete examination, need for further radiographic studies, intestinal injury, and need for major abdominal surgery were discussed. All questions were answered to their satisfaction, and they are in agreement with this plan.
[2024-04-11 11:08] VITALS: BP 90/59; PULSE 67; RESP 17; TEMP 36.4; O2SAT 95
[2024-04-11 11:13] VITALS: BP 94/61; PULSE 61; RESP 16; O2SAT 98
--- NOTE | 2024-04-11 11:13 | PM.HP.1 ---
History of Present Illness History of Present Illness Chief complaint: Screening Colonoscopy Narrative: 58-year-old woman history of diverticulosis status post sigmoid colectomy here for screening colonoscopy. Last colonoscopy 2018. History of colonic polyps. No abdominal concerns today. [facility] Medical History Left arm numbness Chronic low back pain without sciatica Arthritis of both hands Chronic pain in right foot Hyperlipidemia Wears glasses Hearing loss Actinic keratosis (~2011) Acne (~1979) Factor V Leiden (~1965) Painful menstrual periods (~1984) Ovarian cyst (~1999) Herpes (~1994) Endometriosis (~2009) Gluten intolerance (~2014) Colon polyps (~2014) Squamous cell skin cancer (~2019) Skin cancer, basal cell (~2019) Diverticulosis (~2014) Vasovagal reaction Irritable bowel syndrome (~2014) Surgical History Anesthesia Dermoid cyst Status post Mohs surgery History of cholecystectomy History of hysterectomy History of removal of cyst History of section Status post surgical removal of both fallopian tubes History of varicose vein ligation H/O colectomy Family History Father Skin cancer Mother Hypertension Grandmother History of heart disease Grandfather Cancer History of heart disease Social History Smoking Status: Never smoker alcohol intake: current Meds Home Medications and Allergies Home Medications Medication Instructions Recorded Confirmed Type estradiol 0.01% (0.1 mg/gram) 1 appful vaginal DAILY #42.5 grams 09/29/23 01/20/24 Rx vaginal cream valacyclovir 1 gram tablet See Rx Instructions .Route 01/20/24 01/20/24 Rx .COMPLEX #21 tabs Allergies Allergy/AdvReac Type Severity Reaction Status Date / Time prochlorperazine Allergy Severe Weakness Verified 04/11/24 10:04 [From Compazine] alcohol Allergy Intermediate Rash Verified 04/11/24 10:04 [From Mastisol Adhesive] gum mastic Allergy Intermediate Rash Verified 04/11/24 10:04 [From Mastisol Adhesive] methyl salicylate Allergy Intermediate Rash Verified 04/11/24 10:04 [From Mastisol Adhesive] propoxyphene Allergy Intermediate Hallucinati Verified 04/11/24 10:04 [From Darvocet-N] ng storax Allergy Intermediate Rash Verified 04/11/24 10:04 [From Mastisol Adhesive] Sulfa (Sulfonamide Allergy Intermediate Rash Verified 04/11/24 10:04 Antibiotics) amoxicillin [From Augmentin] Allergy Unknown Verified 04/11/24 10:04 clavulanic acid Allergy Unknown Verified 04/11/24 10:04 [From Augmentin] latex Allergy Unknown Verified 04/11/24 10:04 Exam Vital Signs (past 8 hours): - 04/11/24 10:25 04/11/24 11:08 Temperature 97.8 F 97.6 F Pulse Rate 75 67 Respiratory Rate 16 17 Blood Pressure 119/76 90/59 L Pulse Oximetry 95 95 Oxygen Delivery Method Room Air Room Air Oxygen Delivery Method Room Air Assessment & Plan Assessment & Plan narrative: The patient requires colorectal screening and colonoscopy is recommended. Technical details were discussed. Risks, benefits, alternatives explained. Risks including but not limited to myocardial infarction, aspiration, bleeding, pain, missed lesion, incomplete examination, need for further radiographic studies, intestinal injury, and need for major abdominal surgery were discussed. All questions were answered to their satisfaction, and they are in agreement with this plan.
--- NOTE | 2024-04-11 11:16 | PM.OP.COLON ---
Operative Date/Time/Diagnoses Date of procedure: 04/11/24 Time of procedure: 11:16 Pre-op diagnosis: Colorectal screening Procedure & Clinicians Study performed: Aborted colonoscopy. Indications: Colorectal screening Surgeon: Issa Werner Procedure Notes Procedure in detail: The history and physical was performed/updated and the patient is ASA class is 2. The procedure was discussed in detail with the patient. Potential risks complications including infection, bleeding, missed diagnosis, perforation, need for surgery, and were explained. Their questions were answered and informed consent was obtained. Patient was brought to the procedure room and placed standard monitoring equipment. The patient's vital signs were monitored continuously throughout the entire procedure. Prior to starting time-out was performed. The patient was placed in the left lateral recumbent position. Procedural sedation was administered by anesthesia. Examination began with a thorough inspection of the perianal area there was no evidence of fissures, fistulae, external hemorrhoids or cutaneous malignancy. The colonoscopy scope was then placed into the anal canal and was advanced forward. The quality of the preparation was poor despite copious irrigation. It was inadequate accurate and safe performance of the exam the procedure was aborted. Specimen(s): none sent Impression: Aborted colonoscopy Post-procedure Plan for aftercare: Repeat colonoscopy with alternative preparation Disposition: same day surgery
[2024-04-11 11:18] VITALS: BP 108/70; PULSE 67; RESP 16; O2SAT 99
[2024-04-11] MEDS: LACTATED RINGERS 1,000 ML 42 ML IV (11:21)
[2024-04-11 11:23] VITALS: BP 105/70; PULSE 58; RESP 16; O2SAT 100
[2024-04-11 11:28] VITALS: BP 106/70; PULSE 65; RESP 14; TEMP 36.4; O2SAT 98
== END 2024-04-11 11:39 | disposition home or self-care (01) ==
PROVIDERS: PCP Family Medicine; Referring Provider Surgery; Visit Provider Surgery
PROC: 0DJD8ZZ Inspection of Lower Intestinal Tract, Via Natural or Artificial Opening Endoscopic (ICD-10-PCS; CPT 45378; principal; 2024-04-11 10:15)
DX: Z12.11 Encounter for screening for malignant neoplasm of colon (principal); Z53.09 Procedure and treatment not carried out because of other contraindication
CPT/HCPCS: 45378; J2704

== ENCOUNTER 2024-07-04 08:59 | Day surgery (SDC) | payer OTHER, SELFPAY ==
--- NOTE | 2024-07-04 | PATH_ITS ---
[facility] Accession Number: [id number] No. of containers..01 Tissue . 01 Material submitted: . colon - TRANSVERSE COLON POLYP . 01 Diagnosis: TRANSVERSE COLON POLYP: Colonic mucosa with benign lymphoid aggregate. No neoplasm identified. . Specimen Comments: Additional step sections were examined. [facility] 07/07/2024 1304 Local . 01 Electronically signed: . Lei Gill MD, Pathologist NPI- [id number] . 01 Gross description: . Received in formalin with two patient identifiers and transverse colon polyp, is a single hays soft tissue fragment, 0.3 cm in greatest dimension. Submitted in A1. ([id number]) /MRV 07/07/2024 1304 Local . 01 Pathologist provided ICD-10: K63.89 . 01 CPT . 892465 Specimen Comment: A courtesy copy of this report has been sent to [phone] Performed at: [address] [facility] [address], [place], [place] [id number] MD Lei Gill MD Phone: [phone]
[2024-07-04 09:45] VITALS: BP 128/91; PULSE 86; RESP 17; TEMP 36.6; O2SAT 97
[2024-07-04] MEDS: LACTATED RINGERS 1,000 ML 42 ML IV (09:53)
--- NOTE | 2024-07-04 10:25 | PM.HP.1 ---
History of Present Illness History of Present Illness Date Patient Seen: 07/04/24 Time Patient Seen: 10:25 Chief complaint: Screening Colonoscopy Narrative: 58-year-old woman here for screening colonoscopy. Personal history of colonic polyps and diverticular disease. Last colonoscopy 5 years ago. FOR[facility]LY [facility], [facility] Medical History Left arm numbness Chronic low back pain without sciatica Arthritis of both hands Chronic pain in right foot Hyperlipidemia Wears glasses Hearing loss Actinic keratosis (~2011) Acne (~1979) Factor V Leiden (~1965) Painful menstrual periods (~1984) Ovarian cyst (~1999) Herpes (~1994) Endometriosis (~2009) Gluten intolerance (~2014) Colon polyps (~2014) Squamous cell skin cancer (~2019) Skin cancer, basal cell (~2019) Diverticulosis (~2014) Vasovagal reaction Irritable bowel syndrome (~2014) Surgical History Anesthesia Dermoid cyst Status post Mohs surgery History of cholecystectomy History of hysterectomy History of removal of cyst History of section Status post surgical removal of both fallopian tubes History of varicose vein ligation H/O colectomy Family History Father Skin cancer Mother Hypertension Grandmother History of heart disease Grandfather Cancer History of heart disease Social History Smoking Status: Never smoker alcohol intake: current Meds Home Medications and Allergies Home Medications Medication Instructions Recorded Confirmed Type estradiol 0.01% (0.1 mg/gram) 1 appful vaginal DAILY #42.5 grams 09/29/23 07/04/24 Rx vaginal cream valacyclovir 1 gram tablet See Rx Instructions .Route 01/20/24 07/04/24 Rx .COMPLEX #21 tabs Allergies Allergy/AdvReac Type Severity Reaction Status Date / Time prochlorperazine Allergy Severe Weakness Verified 07/04/24 09:51 [From Compazine] alcohol Allergy Intermediate Rash Verified 07/04/24 09:51 [From Mastisol Adhesive] gum mastic Allergy Intermediate Rash Verified 07/04/24 09:51 [From Mastisol Adhesive] methyl salicylate Allergy Intermediate Rash Verified 07/04/24 09:51 [From Mastisol Adhesive] propoxyphene Allergy Intermediate Hallucinati Verified 07/04/24 09:51 [From Darvocet-N] ng storax Allergy Intermediate Rash Verified 07/04/24 09:51 [From Mastisol Adhesive] Sulfa (Sulfonamide Allergy Intermediate Rash Verified 07/04/24 09:51 Antibiotics) amoxicillin [From Augmentin] Allergy Unknown Verified 07/04/24 09:51 clavulanic acid Allergy Unknown Verified 07/04/24 09:51 [From Augmentin] latex Allergy Unknown Verified 07/04/24 09:51 Exam Vital Signs (past 8 hours): - 07/04/24 09:45 Temperature 97.8 F Pulse Rate 86 Respiratory Rate 17 Blood Pressure 128/91 H Pulse Oximetry 97 Oxygen Delivery Method Room Air Oxygen Delivery Method Room Air Narrative Exam Narrative: General adult woman alert oriented no acute distress Chest nonlabored respiration Extremities warm well perfused Assessment & Plan Assessment and plan (1) Personal history of colonic polyps: Status: Acute Assessment & Plan narrative: The patient requires colorectal screening and colonoscopy is recommended. Technical details were discussed. Risks, benefits, alternatives explained. Risks including but not limited to myocardial infarction, aspiration, bleeding, pain, missed lesion, incomplete examination, need for further radiographic studies, intestinal injury, and need for major abdominal surgery were discussed. All questions were answered to their satisfaction, and they are in agreement with this plan. Time-Based Coding :: [TOTAL MINUTES] spent with patient and on the chart (including review of chart, obtaining history, exam, reviewing outside data, placing orders, documenting exam and treatment plan, and counseling patient) on [DATE].
--- NOTE | 2024-07-04 10:36 | P.OP.COLON_ITS ---
Operative Date/Time/Diagnoses Date of procedure: 07/04/24 Time of procedure: 10:36 Pre-op diagnosis: History of polyps Procedure & Clinicians Study performed: Screening colonoscopy Same procedure as scheduled: Yes Indications: Screening Surgeon: Issa Werner Procedure Notes Procedure in detail: The history and physical was performed/updated and the patient is ASA class is 2. The procedure was discussed in detail with the patient. Potential risks complications including infection, bleeding, missed diagnosis, perforation, need for surgery, and were explained. Their questions were answered and informed consent was obtained. Patient was brought to the procedure room and placed standard monitoring equipment. The patient's vital signs were monitored continuously throughout the entire procedure. Prior to starting time-out was performed. The patient was placed in the left lateral recumbent position. Procedural sedation was administered by anesthesia. Examination began with a thorough inspection of the perianal area there was no evidence of fissures, fistulae, external hemorrhoids or cutaneous malignancy. The colonoscopy scope was then placed into the anal canal and was advanced to the cecum, which was identified by the ileocecal valve, the appendiceal orifice and the confluence of the taenia. The scope was then slowly withdrawn examining colon thoroughly in all directions, irrigating it of any residual stool. The scope was retroflexed within the rectum The patient tolerated the procedure well. They will be discharged once criteria are met. The prep was of good/excellent quality. The withdrawl time was 7 minutes. FINDINGS * Diverticulosis moderate of distal colon * Transverse colon polyp 1-2 mm removed with Jumbo forceps likely hyperplastic Specimen(s): other (Transverse colon polyp) Impression: Colonic polyp x1 Post-procedure Recommendations: High fiber diet Plan for aftercare: Follow-up is dependent on pathology findings Disposition: same day surgery
[2024-07-04 11:06] VITALS: BP 91/51; PULSE 66; RESP 12; TEMP 37; O2SAT 98
[2024-07-04 11:11] VITALS: BP 93/59; PULSE 61; RESP 12; TEMP 36.9; O2SAT 99
[2024-07-04 11:17] VITALS: BP 92/57; PULSE 75; RESP 20; TEMP 36.9; O2SAT 100
== END 2024-07-04 11:35 | disposition home or self-care (01) ==
PROVIDERS: PCP Family Medicine; Referring Provider Surgery; Visit Provider Surgery
PROC: 0DJD8ZZ Inspection of Lower Intestinal Tract, Via Natural or Artificial Opening Endoscopic (ICD-10-PCS; CPT 45378; principal; 2024-07-04 10:15)
DX: Z12.11 Encounter for screening for malignant neoplasm of colon (principal); Z86.010 Personal history of colon polyps; K57.30 Diverticulosis of large intestine without perforation or abscess without bleeding
CPT/HCPCS: 45380; J2704

== ENCOUNTER → 2025-07-17 08:13 | Outpatient (CLI) | payer OTHER, SELFPAY ==
[2025-07-17 08:55] LABS: Add Manual Diff / Slide Review NO; Hematocrit 41.9 % (36-46); Hemoglobin 14.4 g/dL (12.0-16.0); Lymphocytes Absolute Auto 1600 /uL (1100-4500); Mean Corpuscular HGB Conc 34.4 % (30-36); Mean Corpuscular Hemoglobin 32.0 PG (26-34); Mean Corpuscular Volume 92.9 fL (80-100); Platelet Count 277 X10^3/uL (150-400)
[2025-07-17 09:20] LABS: Alanine Aminotransferase 19 IU/L (<35); Albumin 4.5 g/dL (3.5-5.0); Albumin Globulin Ratio 2.0 (1.0-2.8); Alkaline Phosphatase 70 U/L (38-126); Blood Urea Nitrogen 12 mg/dL (7-17); Calcium 9.5 mg/dL (8.4-10.2); Carbon Dioxide 25 mmol/L (22-32); Chloride 106 mmol/L (98-107); Cholesterol 241 mg/dL (140-199); Estimated Glomerular Filt Rate > 60 mL/min (>60); Globulin 2.3 g/dL (1.7-4.1); Glucose 99 mg/dL (70-99); HDL Cholesterol 66 mg/dL (40-60); HEMOLYSIS < 15 (0-50); Potassium 4.3 mmol/L (3.4-5.1); Sodium 138 mmol/L (137-145); Total Protein 6.8 g/dL (6.3-8.2); Triglycerides 142 mg/dL (35-150)
== END ==
PROVIDERS: PCP Family Medicine; Referring Provider Family Medicine; Visit Provider Family Medicine
DX: E78.2 Mixed hyperlipidemia (principal)
CPT/HCPCS: 36415; 80053; 80061; 85025

== ENCOUNTER → 2025-07-26 16:39 | Outpatient (CLI) | payer OTHER, SELFPAY ==
--- NOTE | 2025-07-26 16:42 | DI.RAD.S_ITS ---
PROCEDURE: XR FINGER LT 3V INDICATIONS: Thumb pain unable to bend TECHNIQUE: AP hand, 2 views of the 1st finger acquired. COMPARISON: None. FINDINGS: [id number] degenerative changes of the left 1st carpal-metacarpal, 1st metacarpophalangeal and 1st interphalangeal joints. Moderate degenerative changes at the 2nd through 5th PIP joints. No radiographic evidence of fracture dislocation or high attenuation foreign body. IMPRESSION: Degenerative changes as discussed above. If symptoms persist or worsen, or there is high clinical suspicion of left hand abnormality, MRI could be performed. Dictated by: Justino Franz M.D. on 07/27/2025 at 16:39 Approved by: Justino Franz M.D. on 07/27/2025 at 16:41
== END ==
LOC: RAD 16:41
PROVIDERS: PCP Family Medicine; Referring Provider Nurse Practitioner Family; Visit Provider Nurse Practitioner Family
DX: S60.012A Contusion of left thumb without damage to nail, initial encounter (principal); X58.XXXA Exposure to other specified factors, initial encounter
CPT/HCPCS: 73140